=== PATIENT | male | born 1990 | race Native Hawaiian/Other Pacific Islander ===

== ENCOUNTER 2023-07-08 16:14 | Emergency (ER) | payer OTHER ==
[2023-07-08 16:46] VITALS: BP 146/81; O2SAT 100
[2023-07-08] MEDS ORDERED: LIDOCAINE TOPICAL 4% 50 ML BOTTLE TOP ONE (16:58)
--- NOTE | 2023-07-08 17:02 | ED Physician Documentation ---
PD HPI MALE - Stated complaint Stated Complaint: - Chief complaint Chief Complaint: Abd Pain - History obtained from History obtained from: Patient - Additional information Additional information: 32-year-old male with no reported past medical history presents for help with his hemorrhoid. Several days ago after a night drinking patient had vomiting and subsequently developed a hemorrhoid. It is painful and he is not sure how to manage it, especially because he is about to go on leave and visit his family.Denies change in bowel habits. Review of Systems Constitutional: denies: Fever, Chills Cardiac: denies: Chest pain / pressure, Palpitations, Calf pain Respiratory: denies: Dyspnea, Cough, Wheezing GI: reports: Other (hemorrhoid/rectal pain). denies: Abdominal Pain, Nausea, Vomiting, Constipation, Diarrhea PD PAST MEDICAL HISTORY - Past Medical History Past Medical History: No - Past Surgical History Past Surgical History: Yes General: Appendectomy - Present Medications Home Medications: Ambulatory Orders Medication Instructions Recorded Confirmed Lidocaine Ointment 5% [Xylocaine 1 applic TOP QID #35.44 gm 07/08/23 Ointment 5%] - Allergies Allergies/Adverse Reactions: Allergies Allergy/AdvReac Type Severity Reaction Status Date / Time No Known Drug Allergies Allergy Verified 07/08/23 16:35 - Social History Does the pt smoke?: No Smoking Status: Never smoker PD ED PE NORMAL - Vitals Vital signs reviewed: Yes - General General: Alert and oriented X 3, No acute distress, Well developed/nourished - Rectal Rectal: Pt declined, Other (patient showed picture of his hemorrhoid on phone. 2 hemorrhoids at 3' and 5 o'clock position.) - Derm Derm: Normal color, Warm and dry, No rash - Neuro Neuro: Alert and oriented X 3, cash surrender calculator 2-12 intact, No motor deficit, Normal speech Results - Vitals Vitals: Vital Signs - 24 hr 07/08/23 16:33 Temperature 36.8 C Heart Rate 67 Respiratory 18 Rate Blood Pressure 146/81 H O2 Saturation 100 PD Medical Decision Making - ED course Complexity details: reviewed results, re-evaluated patient, considered differential, d/w patient ED course: Patient requesting help with management of his hemorrhoids. He declined rectal exam but showed me a picture of the hemorrhoids he had taken on his phone earlier today. Hemorrhoids may be thrombosed but is difficult to tell from the picture. Patient advised on using preparation H and lidocaine ointments for relief. Recommended sitz baths and stool softeners to prevent worsening hemorrhoids. PCP followup advised. Departure - Departure Disposition: 01 Home, Self Care Clinical Impression: Hemorrhoid thrombosis Condition: Stable Instructions: ED Hemorrhoids Prescriptions: Lidocaine Ointment 5% [Xylocaine Ointment 5%] 1 applic TOP QID #35.44 gm Comments: USE EITHER PREPARATION H OR ANUSOL PLUS (WITH LIDOCAINE) FOR PAIN. USE SITZ BATHS 2-3 TIMES DAILY FOR RELIEF. TAKE A DAILY STOOL SOFTENER, STRAINING CAN LEAD TO WORSENING HEMORRHOIDS. Forms: PCP List Discharge Date/Time: 07/08/23 17:14
== END 2023-07-08 17:14 | disposition home or self-care (01) ==
LOC: ED 16:14
DX: K64.5 Perianal venous thrombosis (principal)
CPT/HCPCS: 99282; 99283